=== PATIENT | female | born 1960 | race Caucasian/White ===

== ENCOUNTER 2016-07-21 23:29 | Emergency (ER) | payer OTHER ==
[~2016-07-21] VITALS: Ht 154.9 cm; Wt 59.0 kg
[2016-07-21 23:58] VITALS: BP 144/78
--- NOTE | 2016-07-22 01:11 | ED DYSPNEA/ASTHMA COMPLAINT ---
History of Present Illness General Chief Complaint: Wheezing/Asthma Stated Complaint: DIFFICULTY BREATHING H/O ASTHMA Source: patient Exam Limitations: no limitations Vital Signs & Intake/Output Vital Signs & Intake/Output Vital Signs Date Time Temp Pulse Resp B/P Pulse O2 O2 Flow FiO2 Ox Delivery Rate 07/21 2358 98.9 92 18 144/78 96 Room Air ED Intake and Output 07/22 0000 07/21 1200 Intake Total Output Total Balance Patient 130 lb Weight Allergies Coded Allergies: flunisolide (07/22/16) Reconcile Medications Ipratropium/Albuterol Sulfate (Combivent Respimat Inhal [place]) 20 MCG-100 MCG/ ACTUATION MIST.INHAL 2-4 INH INH Q6 PRN trouble breathing Triage Note: PT STATES HER ASTHMA IS ACTING UP, GETS SOB WITH EXERTION,INHALERS NOT WORKING, Triage Nurses Notes Reviewed? yes HPI: Patient presents for evaluation of an asthma exacerbation that began gradually about 4 hours ago. Patient feels that his seasonal allergy symptoms exacerbating her asthma. She has been using her inhaler without relief. She describes her dyspnea is constant but fluctuating in intensity and worse with exertion. Past History Travel History Traveled to [place] past 21 day No Medical History Any Pertinent Medical History? see below for history Neurological: vertigo EENT: NONE Cardiovascular: CHOL,HTN Respiratory: asthma Gastrointestinal: NONE Hepatic: NONE Renal: NONE Musculoskeletal: NONE Psychiatric: NONE Endocrine: NONE Blood Disorders: NONE Cancer(s): NONE Surgical History Surgical History: non-contributory Psychosocial History What is your primary language [place] Tobacco Use: Never used Family History Hx Contributory? No Review of Systems Review of Systems Constitutional: Reports: no symptoms. EENTM: Reports: no symptoms. Respiratory: Reports: see HPI. Cardiovascular: Reports: no symptoms. GI: Reports: no symptoms. Genitourinary: Reports: no symptoms. Musculoskeletal: Reports: no symptoms. Skin: Reports: no symptoms. Neurological/Psychological: Reports: no symptoms. Hematologic/Endocrine: Reports: no symptoms. Immunologic/Allergic: Reports: no symptoms. All Other Systems: Reviewed and Negative Physical Exam Physical Exam Respiratory: SEE BELOW Comments: Gen.: Well-nourished, well-developed, no acute respiratory distress. Head: Normocephalic, atraumatic. Eyes: Normal inspection bilaterally Ears: Normal inspection bilaterally Nose: Normal inspection Throat/mouth : Moist mucosa Neck: Supple, full range of motion, no goiter Heart: Regular rate and rhythm, no murmurs rubs or gallops Lungs: Mildly prolonged expiratory phase with harsh breath sounds bilaterally but no overt wheezes, no rales or rhonchi Chest: Nontender Back: Normal range of motion Abdomen: Soft, nontender, nondistended, normal bowel sounds Extremities: Normal range of motion grossly, equal radial pulses, no cyanosis clubbing or edema Neurologic: Cranial nerves grossly intact, speech is clear Skin: warm and dry Psychiatric: Calm, cooperative, no apparent delusions or hallucinations Core Measures ACS in differential dx? No Severe Sepsis Present: No Septic Shock Present: No Progress Differential Diagnosis: asthma, bronchitis, CHF, COPD, pneumonia, pneumothorax Plan of Care: Current Medications Sig/Lea Start time Last Medication Dose Stop Time Status Admin Dexamethasone 4 MG ONCE ONE 07/22 244 UNVr (Decadron) 07/22 245 Diagnostic Imaging: Discussed w/RAD: Radiology Read. CXR Impression: PATIENT: LESLEY WILD PRESENT AGE: 55 PATIENT ACCOUNT NO: [id number] : 61 LOCATION: [facility] ORDERING PHYSICIAN: TALIB SPICER MD SERVICE DATE: 07/22/16 EXAM TYPE: RAD - XRY-CHEST XRAY, PA AND LATERAL EXAMINATION: XR CHEST CLINICAL INFORMATION: Right -sided wheezes/dyspnea. COMPARISON: None available. TECHNIQUE: 2 views of the chest were obtained. FINDINGS: Symmetric lung inflation. There is no focal consolidation, pleural effusion, or pneumothorax. Cardiac silhouette size is normal. There are no acute osseous findings. IMPRESSION: No acute pulmonary process. DICTATED BY: TALIB SCALES MD DATE/TIME DICTATED:07/22/16200 POULTRY PATHOLOGIST:VEENA DATE/TIME TRANSCRIBED:07/22/16200 CONFIDENTIAL, DO NOT COPY WITHOUT APPROPRIATE AUTHORIZATION. <Electronically signed in Other Vendor System> SIGNED BY: TALIB SCALES MD 07/22/16206 Initial ED EKG: none Comments: 07/22/2016 2:39:46 AM Lesley is feeling much better and auscultation of the lungs reveals normal bilateral air entry with no wheezes rales or rhonchi. Chest x-ray is unremarkable. Plan a dose of Decadron prior to discharge and the addition of a Combivent inhaler to her home regimen. Departure Departure Disposition: HOME OR SELF CARE Condition: Stable Clinical Impression Primary Impression: Asthma exacerbation Referrals: COLLETTE PATEL,EUSEBIO Damon (PCP/Family) Additional Instructions: Combivent inhaler 4 times per day, use her albuterol inhaler 1-2 times in between the Combivent doses if needed. You been treated with a dose of Decadron which is a long-acting steroid that should provide benefit over the next 48 hours. Follow-up with your primary care doctor on Saturday for reevaluation. Return if any concerns or sudden worsening. Thank you for choosing the [facility] for your care. It was a pleasure to serve you today. Talib Spicer M.D. [facility] Departure Forms: Customer Survey General Discharge Information Prescriptions: Current Visit Scripts Ipratropium/Albuterol Sulfate (Combivent Respimat Inhal [place]) 2-4 INH INH Q6 PRN trouble breathing #1 INHAL Critical Care Note Critical Care Note Critical Care Time: non-applicable
--- NOTE | 2016-07-22 02:07 | RADIOLOGY REPORT ---
EXAMINATION: XR CHEST CLINICAL INFORMATION: Right-sided wheezes/dyspnea. COMPARISON: None available. TECHNIQUE: 2 views of the chest were obtained. FINDINGS: Symmetric lung inflation. There is no focal consolidation, pleural effusion, or pneumothorax. Cardiac silhouette size is normal. There are no acute osseous findings. IMPRESSION: No acute pulmonary process.
[2016-07-22] MEDS ORDERED: COMBIVENT RESPIM4 GM INH (02:43)
== END 2016-07-22 03:01 ==
LOC: ERH 23:29
DX: J45.901 Unspecified asthma with (acute) exacerbation (principal)
CPT/HCPCS: 1263; J1100